=== PATIENT | female | born 1985 | race Caucasian/White ===

== ENCOUNTER 2019-05-13 01:06 | Emergency (ER) | payer SELFPAY ==
[~2019-05-13] VITALS: Ht 157.5 cm; Wt 62.7 kg
[~2019-05-13 01:06] MED LIST: PRENATAL VITS.
[2019-05-13 01:30] VITALS: BP 128/61
[2019-05-13] MEDS ORDERED: PERTUSS(ACELL),DIPH,TET VAC/PF 0.5 ML VIAL IM ONE (01:30)
[2019-05-13] MEDS ORDERED: BACITRACIN 0.9 GM PACKET OINTMENT TP ONE ×2 (01:45→01:48)
== END 2019-05-13 01:52 | disposition home or self-care (01) ==
LOC: EDBD 01:07 → EMS 01:07
DX: S51.832A Puncture wound without foreign body of left forearm, initial encounter (principal); W22.8XXA Striking against or struck by other objects, initial encounter; Y93.89 Activity, other specified; Y92.520 Airport as the place of occurrence of the external cause; Y99.8 Other external cause status
CPT/HCPCS: 90471; 90715